=== PATIENT | male | born 1975 | race Caucasian/White ===

== ENCOUNTER 2019-07-08 16:41 | Emergency (ER) | payer BC ==
[2019-07-08] MEDS ORDERED: NA CHLORIDE 0.9% 1,000 ML ONE (17:06)
--- NOTE | 2019-07-08 18:47 | RAD REPORT ---
EXAM DESCRIPTION: US - Extremity Nonvascular Limited - 07/08/2019 6:35 pm CLINICAL HISTORY: Palpable abnormality, left groin pain COMPARISON: None. FINDINGS: Sonographic evaluation was performed of the upper left thigh and groin region. In the area of palpable abnormality there is a 3.5 x 2.6 x 1.2 centimeter lymph node. Lymph node show s thickening of the cortex. Thickness of the cortex is not uniform. Hypervascular echogenic fatty hil um is still present. In the surrounding tissues no additional mass identified. IMPRESSION: Enlarged lymph node is present at the site of palpable abnormality. Lymph node shows asymmetric thickening of the cortex over what is typically seen. Fatty hilum is stil l present. Lymph node is still most likely reactive. If the lymph node does not resolve on conservative therapy, image guided biopsy could be performed to exclude a more aggressive process.
[2019-07-08 19:03] LABS: Absolute Lymphocytes (CBC) 1.5 K/uL (0.7-4.9); Basophils % 1.3 % (0-1.3); Hematocrit 40.4 % (39.6-49.0); MPV 7.7 fL (7.6-11.3); RBC Red Blood Cell Count 4.35 M/uL (4.33-5.43)
[2019-07-08 19:22] LABS: Blood Morphology Comment NOT SEEN (NOT SEEN); Platelet Estimate ADEQ; Urine White Blood Cell Casts OK
[2019-07-08 19:23] LABS: Urine Blood NEGATIVE (NEG); Urine Glucose NEGATIVE (NEG); Urine Protein NEGATIVE (NEG); Urine Specific Gravity 1.015 (1.005-1.030)
[2019-07-08 19:28] LABS: BUN Blood Urea Nitrogen 14 mg/dL (7-18); Bicarbonate 31 mmol/L (21-32); Glucose Level 88 mg/dL (74-106); Potassium 3.9 mmol/L (3.5-5.1); Sodium Level 139 mmol/L (136-145)
--- NOTE | 2019-07-08 19:41 | EDPHYS ---
Physician Documentation [facility] Name: Tyler Miguel Age: 44 yrs Sex: Male : 1975 Arrival Date: 07/08/2019 Time: 16:47 Bed 26 Private MD: ED Physician Alvaro Rosales HPI: 07/08 18:20 This 44 yrs old Male presents to ER via Ambulatory with complaints of cp Abscess, Leg Swelling. 18:20 The patient presents with swelling, tenderness. cp 18:20 The complaints affect the left groin. Onset: The symptoms/episode began/occurred 1 cp month(s) ago, and became worse 1 week(s) ago. Associated signs and symptoms: Pertinent positives: warmth, erythema, Pertinent negatives fever. Treatment prior to arrival includes: no previous treatment. Historical: - Allergies: 17:00 No Known Allergies; aj1 - Home Meds: 17:00 None [Active]; aj1 - PMHx: 17:00 None; aj1 - PSHx: 17:00 Appendectomy; aj1 - Immunization history:: Flu vaccine is not up to date. - Social history:: Smoking status: Patient/guardian denies using tobacco. - Ebola Screening: : Patient denies travel to an Ebola-affected area in the 21 days before illness onset. ROS: 18:30 Constitutional: Negative for body aches, chills, fever, poor PO intake. cp 18:30 ENT: Negative for drainage from ear(s), ear pain, sore throat. cp 18:30 Cardiovascular: Negative for chest pain. 18:30 Respiratory: Negative for cough, shortness of breath, wheezing. 18:30 Abdomen/GI: Negative for abdominal pain, nausea, vomiting, and diarrhea, black/tarry stool, rectal bleeding. 18:30 MS/extremity: Positive for swelling, tenderness, of the left groin, Negative for injury or acute deformity, decreased range of motion, paresthesias. 18:30 Skin: Negative for rash. 18:30 Neuro: Negative for altered mental status, headache, weakness. 18:30 All other systems are negative. Exam: 18:35 Constitutional: The patient appears in no acute distress, alert, awake, comfortable, cp non-toxic, well developed, well nourished. 18:35 Head/Face: Normocephalic, atraumatic. cp 18:35 Eyes: Periorbital structures: appear normal, Conjunctiva: normal, no exudate, no injection, Sclera: no appreciated abnormality, Lids and lashes: appear normal, bilaterally. 18:35 ENT: External ear(s): are unremarkable, Nose: is normal, Mouth: Lips: moist, Oral mucosa: pink and intact, moist, Posterior pharynx: is normal, airway is patent. 18:35 Chest/axilla: Inspection: normal. 18:35 Cardiovascular: Rate: normal. 18:35 Respiratory: the patient does not display signs of respiratory distress, Respirations: normal, no use of accessory muscles, no retractions, no splinting, no tachypnea. 18:35 Abdomen/GI: Inspection: abdomen appears normal, Palpation: abdomen is soft and non-tender, in all quadrants. 18:35 Musculoskeletal/extremity: Extremities: grossly normal except: noted in the left groin: swelling, tenderness, enlarged lymph nodes palpated. 18:35 Skin: cellulitis, is not appreciated, no rash present. Vital Signs: 17:00 BP 119 / 80; Pulse 66; Resp 18; Temp 97.5(TE); Pulse Ox 100% on R/A; Weight 74.84 kg aj1 (R); Height 5 ft. 8 in. (172.72 cm) (R); Pain 0/10; 18:21 BP 100 / 74; Pulse 69; Resp 17 S; Pulse Ox 99% on R/A; ca1 18:30 BP 115 / 82; Pulse 65; Resp 16; Temp 98.8(O); Pulse Ox 100% ; lt1 19:52 BP 119 / 76; Pulse 71; Resp 17 S; Pulse Ox 100% on R/A; ca1 17:00 Body Mass Index 25.09 (74.84 kg, 172.72 cm) aj1 MDM: 17:35 Patient medically screened. cp 19:00 Differential diagnosis: abscess, enlarged lymph node, cellulitis. cp 19:40 Data reviewed: vital signs, nurses notes, lab test result(s), radiologic studies, cp ultrasound. 19:40 Counseling: I had a detailed discussion with the patient and/or guardian regarding: the cp historical points, exam findings, and any diagnostic results supporting the discharge/admit diagnosis, lab results, radiology results, to return to the emergency department if symptoms worsen or persist or if there are any questions or concerns that arise at home. 07/08 17:37 Order name: Glucose, Ancillary Testing; Complete Time: 18:11 EDMS 07/08 18:32 Order name: CBC with Diff cp 07/08 18:32 Order name: BMP cp 07/08 19:05 Order name: Urine Dipstick--Ancillary (enter results) ar5 07/08 19:06 Order name: CBC with Automated Diff; Complete Time: 19:30 EDMS 07/08 19:23 Order name: CBC Smear Scan; Complete Time: 19:30 EDMS 07/08 18:15 Order name: US Extrmty Nonvasular Limited cp 07/08 18:32 Order name: Urine Dipstick-Ancillary (obtain specimen); Complete Time: 19:00 cp 07/08 19:25 Order name: Urine Dipstick-Ancillary; Complete Time: 19:30 EDMS 07/08 19:30 Order name: Basic Metabolic Panel; Complete Time: 19:30 EDMS Administered Medications: No medications were administered Point of Care Testing: Blood Glucose: 17:33 Blood Glucose: 64 mg/dL; rv Ranges: Critical Glucose Levels:Adult <50 mg/dl or >400 mg/dl <40 mg/dl or >180 mg/dl Disposition: 20:00 Chart complete. Disposition: 07/08/19 19:40 Discharged to Home. Impression: Enlarged lymph nodes - left groin. - Condition is Stable. - Discharge Instructions: Lymphadenopathy. - Prescriptions for Ibuprofen 800 mg Oral Tablet - take 1 tablet by ORAL route every 8 hours As needed take with food; 30 tablet. Keflex 500 mg Oral Capsule - take 1 capsule by ORAL route every 8 hours for 10 days; 30 capsule. - Medication Reconciliation Form, Thank You Letter, Antibiotic Education, Prescription Opioid Use form. - Follow up: Private Physician; When: 7 - 10 days; Reason: Worsening of condition. - Problem is new. - Symptoms are unchanged. Addendum: 07/12/2019 08:46 Co-signature as Attending Physician, Alvaro Rosales MD I agree with the assessment and k dr plan of care. Signatures: Dispatcher [facility] Darshana Barajas RN RN aj1 Alvaro Rosales MD MD kdr Дмитрий Monroe PA PA cp Merna Heredia RN RN ca1 Corrections: (The following items were deleted from the chart) 07/08 19:53 19:40 07/08/2019 19:40 Discharged to Home. Impression: Enlarged lymph nodes - left ca1 groin. Condition is Stable. Forms are Medication Reconciliation Form, Thank You Letter, Antibiotic Education, Prescription Opioid Use. Follow up: Private Physician; When: 7 - 10 days; Reason: Worsening of condition. Problem is new. Symptoms are unchanged. cp
--- NOTE | 2019-07-08 19:41 | ER ---
Nurse's Notes [facility] Name: Tyler Miguel Age: 44 yrs Sex: Male : 1975 Arrival Date: 07/08/2019 Time: 16:47 Bed 26 Private MD: Diagnosis: Enlarged lymph nodes-left groin Presentation: 07/08 16:58 Presenting complaint: Patient states: Abscess to the left groin for the past month. aj1 Reports that it started getting bigger within the past week and now its starting to feel tight. Denies drainage. Denies fever. Transition of care: patient was not received from another setting of care. Onset of symptoms was 2018. Risk Assessment: Do you want to hurt yourself or someone else? Patient reports no desire to harm self or others. Initial Sepsis Screen: Does the patient meet any 2 criteria? No. Patient's initial sepsis screen is negative. Does the patient have a suspected source of infection? Yes: Skin breakdown/wound. Care prior to arrival: None. 16:58 Method Of Arrival: Ambulatory [facility] 16:58 Acuity: REHAN 4 aj1 Triage Assessment: 17:00 General: Appears in no apparent distress. comfortable, Behavior is calm, cooperative, aj1 appropriate for age. Pain: Denies pain. Neuro: Level of Consciousness is awake, alert, obeys commands, Oriented to person, place, time, situation. Cardiovascular: Patient's skin is warm and dry. Respiratory: Airway is patent Respiratory effort is even, unlabored, Respiratory pattern is regular, symmetrical. Historical: - Allergies: 17:00 No Known Allergies; aj1 - Home Meds: 17:00 None [Active]; aj1 - PMHx: 17:00 None; aj1 - PSHx: 17:00 Appendectomy; aj1 - Immunization history:: Flu vaccine is not up to date. - Social history:: Smoking status: Patient/guardian denies using tobacco. - Ebola Screening: : Patient denies travel to an Ebola-affected area in the 21 days before illness onset. Screenin:34 Abuse screen: Denies threats or abuse. Denies injuries from another. Nutritional rv screening: No deficits noted. Tuberculosis screening: No symptoms or risk factors identified. Fall Risk None identified. Assessment: 17:25 General: Appears in no apparent distress. comfortable, Behavior is calm, cooperative, ca1 appropriate for age. Pain: Denies pain. Neuro: Level of Consciousness is awake, alert, obeys commands, Oriented to person, place, time, situation. Cardiovascular: Heart tones S1 S2 present Capillary refill < 3 seconds Patient's skin is warm and dry. Respiratory: Airway is patent Respiratory effort is even, unlabored, Respiratory pattern is regular, symmetrical, Breath sounds are clear bilaterally. GI: Abdomen is flat, non-distended, Bowel sounds present X 4 quads. Abd is soft and non tender X 4 quads. : No deficits noted. EENT: No deficits noted. No signs and/or symptoms were reported regarding the EENT system. Derm: Skin is intact, is healthy with good turgor, Skin is pink, warm \T\ dry. lump felt at the L groin area. No redness. Pr reports it's tender and sore. Lump has been there for about weeks now, but has progressively gone bigger. Musculoskeletal: Circulation, motion, and sensation intact. Capillary refill < 3 seconds, Range of motion: intact in all extremities. 18:21 Reassessment: Patient appears in no apparent distress at this time. Patient and/or ca1 family updated on plan of care and expected duration. Pain level reassessed. Patient is alert, oriented x 3, equal unlabored respirations, skin warm/dry/pink. US at bedside. 19:52 Reassessment: Patient appears in no apparent distress at this time. Patient is alert, ca1 oriented x 3, equal unlabored respirations, skin warm/dry/pink. Vital Signs: 17:00 BP 119 / 80; Pulse 66; Resp 18; Temp 97.5(TE); Pulse Ox 100% on R/A; Weight 74.84 kg [facility] (R); Height 5 ft. 8 in. (172.72 cm) (R); Pain 0/10; 18:21 BP 100 / 74; Pulse 69; Resp 17 S; Pulse Ox 99% on R/A; ca1 18:30 BP 115 / 82; Pulse 65; Resp 16; Temp 98.8(O); Pulse Ox 100% ; lt1 19:52 BP 119 / 76; Pulse 71; Resp 17 S; Pulse Ox 100% on R/A; ca1 17:00 Body Mass Index 25.09 (74.84 kg, 172.72 cm) [facility] ED Course: 16:47 Patient arrived in ED. am2 17:00 Triage completed. aj1 17:00 Arm band placed on Patient placed in waiting room, Patient notified of wait time. aj1 17:25 No provider procedures requiring assistance completed. ca1 17:26 Дмитрий Monreo PA is PHCP. cp 17:26 Alvaro Rosales MD is Attending Physician. cp 17:26 Merna Heredia, RN is Primary Nurse. ca1 17:35 Patient has correct armband on for positive identification. Bed in low position. Call rv light in reach. Side rails up X 1. Pulse ox on. NIBP on. 18:45 CBC with Diff Sent. lt1 18:45 BMP Sent. lt1 18:49 Initial lab(s) drawn, by me, sent to lab. Inserted saline lock: 20 gauge in left lt1 antecubital area, using aseptic technique. 19:52 IV discontinued, intact, bleeding controlled, No redness/swelling at site. Pressure ca1 dressing applied. Administered Medications: No medications were administered Point of Care Testing: Blood Glucose: 17:33 Blood Glucose: 64 mg/dL; rv Ranges: Outcome: 19:40 Discharge ordered by MD. cp 19:52 Discharged to home ambulatory, with significant other. ca1 19:52 Condition: stable 19:52 Discharge instructions given to patient, Instructed on discharge instructions, follow up and referral plans. no drinking with medication, medication usage, Demonstrated understanding of instructions, follow-up care, medications, Prescriptions given X 2. 19:53 Patient left the ED. ca1 Signatures: Darshana Barajas RN RN aj1 Дмитрий Monroe PA PA Cassandra Wilson 2 Raul Contreras RN RN Merna Heredia RN RN ca1 [place] lt1
[2019-07-08 20:09] VITALS: TEMP 98.8; O2SAT 100
[2019-07-08 20:10] VITALS: BP 119/76
== END 2019-07-08 19:53 | disposition home or self-care (01) ==
LOC: ER 16:41
DX: R59.0 Localized enlarged lymph nodes (principal)
CPT/HCPCS: 85025; 80048; 36415; 82962; 81003; 76882; 99284; J7030